=== PATIENT | female | born 1945 | race Caucasian/White ===

== ENCOUNTER 2019-05-27 12:05 | Observation (INO) | payer OTHER ==
[~2019-05-27] VITALS: Ht 160 cm; Wt 74.8 kg
[2019-05-27] VITALS (11 sets, daily range): BP systolic 125–150; BP diastolic 50–75
[~2019-05-27 12:05] MED LIST: ASPIRIN81 M2 PO; BRILINTA90 MG PO; FUROSEMIDE 20 M20 MG PO; GLIPIZIDE 10 MG10 MG PO; GLUCOPHAGE1000 MG; IRON325 PO; LIPITOR40 MG PO; LOSARTAN-HCTZ1 EAC3 PO; NITROGLYCERIN0.4 MG SUBLING; OMEPRAZOLE 20 M20 M1 PO; PAROXETINE HCL40 MG PO; SPIRONOLACTONE25 M1 PO; STIOLTO RESPIMAT4 GM INH
[2019-05-27 12:54] LABS: HEMATOCRIT 30.1 % (37.0-47.0); HEMOGLOBIN 10.3 gm/dL (12.0-15.0); MCV 85.1 fL (80.0-100.0); MPV 6.9 fl. (7.2-11.1); RBC 3.54 mil/uL (4.20-5.00); RDW-CV 14.5 % (10.5-14.5); WBC 9.4 thou/uL (4.0-11.0)
[2019-05-27] MEDS ORDERED: ELIQUIS5 MG PO (12:58)
[2019-05-27] MEDS ORDERED: LANTUS100 UNIT/M SUBQ (12:59)
[2019-05-27] MEDS ORDERED: WELLBUTRIN SR150 MG PO (13:01)
[2019-05-27 13:03] LABS: ANION GAP 7 mmol/L (7-16); BUN 21 mg/dL (7-18); CALCIUM 8.2 mg/dL (8.5-10.1); CHLORIDE 100 mmol/L (98-107); CO2 28 mmol/L (21-32); CREATININE 1.2 mg/dL (0.6-1.3); GLUCOSE 296 mg/dL (70-99); POTASSIUM 4.2 mmol/L (3.5-5.1); SODIUM 135 mmol/L (136-145)
[2019-05-27 13:07] LABS: ALBUMIN 3.2 g/dL (3.4-5.0); ALKALINE PHOSPHATASE 149 U/L (46-116); CHOLESTEROL 202 mg/dL (<200); HDL CHOLESTEROL 33 mg/dL (>40); LDL CHOLESTEROL 136 mg/dL (<100); SGOT 10 U/L (15-37); SGPT 16 U/L (30-65); TC:HDL 6.1 Ratio (Not establshd); TOTAL BILIRUBIN 0.5 mg/dL (<0.1-1.0); TOTAL PROTEIN 6.8 g/dL (6.4-8.2); TRIGLYCERIDE 168 mg/dL (<150); VLDL 34 mg/dL (<40)
[2019-05-27 13:08] LABS: SERUM ASSESSMENT Clear
[2019-05-27 13:15] LABS: APTT 22.2 Seconds (25.0-31.3); PROTIME 10.2 Seconds (9.20-11.50)
--- NOTE | 2019-05-27 14:08 | H ---
[place] [address] HISTORY AND PHYSICAL Name: RALEIGH IGNACIO Room: [facility]#: [id number] Admission: 05/27/19 Attend Phys: Fran Dodd MD, F Discharge: Date of : 43 Report #: [id number] THIS REPORT FOR: //name// CC: Dee Dodd DATE OF SERVICE: 05/27/2019 HISTORY OF PRESENT ILLNESS: The patient is a 74-year-old white female, who I was asked to see in the hospital today prior to undergoing a cardiac catheterization. The patient initially presented back in 2015 with chest pain. I placed a single coronary artery stent in the circumflex artery in 04/2016. She has done well since that time. However, recently she complained of heaviness in her chest. It radiates into her left arm. It can make her short of breath. It lasts several minutes, resolved. It is not related to exertion or meals. She has had no cough. She does get short of breath on exertion. She has had no palpitations or syncope. She saw my nurse practitioner in the Cardiology Clinic in January, who recommended a nuclear stress test. This showed evidence of anterior ischemia. She is placed on Imdur, but continued to have the chest pain. I recommended she undergo repeat cardiac catheterization. PAST MEDICAL HISTORY: Otherwise significant for hernia repair, sleep apnea, hypertension, hyperlipidemia and diabetes. MEDICATIONS: Include aspirin, Lipitor, bupropion, Prozac, glipizide, Lantus, metformin, omeprazole, Aldactone, aspirin, and Imdur. ALLERGIES: She has an allergy to SULFA DRUGS. FAMILY HISTORY: She has a son who had coronary artery bypass surgery. SOCIAL HISTORY: She is . She and her live in [place], [place]. Nonsmoker. No alcohol use. REVIEW OF SYSTEMS: She has had no history of stroke, asthma. She does have sleep apnea, uses CPAP. No history of liver disease, kidney disease or cancer. She had back surgery last winter. In September, she was done in [place] when she developed swelling of her left leg and was diagnosed with DVT and placed on Eliquis. She has had no bleeding on Eliquis. She held the Eliquis starting 3 days ago. PHYSICAL EXAMINATION: GENERAL: Revealed an elderly female. VITAL SIGNS: Blood pressure was 140/70, pulse is 80. HEENT: Mucous membranes are moist, [place] [address] HISTORY AND PHYSICAL Name: RALEIGH IGNACIO Room: [facility]#: [id number] Admission: 05/27/19 Attend Phys: Fran Dodd MD, F Discharge: Date of : 43 Report #: [id number] CHEST: Clear to auscultation. CARDIOVASCULAR: Regular rate and rhythm. There was a grade 2 systolic ejection murmur along the sternal border. ABDOMEN: Obese. EXTREMITIES: Had no pitting edema. SKIN: Cool and dry. NEUROLOGIC: Nonfocal. LABORATORY DATA: Lab work in December included BUN 19, creatinine 1. Lipid profile in November, cholesterol 204, triglyceride 185, HDL 31, and LDL 136. Hemoglobin 13.4. TSH 4.0. IMPRESSION AND RECOMMENDATIONS: 1. Angina. Previous stent to the circumflex. Abnormal nuclear stress test. Recommend repeat cardiac catheterization. 2. Hypertension. The patient is currently taking an ARB and diuretic. 3. Hyperlipidemia. The patient is on a statin drug. If LDL remains greater than 70, I would consider adding Zetia. 4. Diabetes. 5. Deep venous thrombosis in September. Eliquis on hold. 6. Obesity. 7. Previous back surgery. 8. Sleep apnea. The patient uses CPAP. <ELECTRONICALLY SIGNED> By: Fran Dodd MD, FACC 05/27/19 1408 1305 1320Dacarolina Dodd MD, FACC /nt
--- NOTE | 2019-05-27 15:53 | EKG ---
[place] [address] ELECTROCARDIOGRAM REPORT Name: RALEIGH IGNACIO Room: [facility]#: [id number] Admission: 05/27/19 Attend Phys: Fran Dodd MD, F Discharge: Date of : 43 Report #: [id number] THIS REPORT FOR: //name// [facility] Test Date: 2019-05-27 Test Time: 13:01:28 Pat Name: RALEIGH IGNACIO Department: Room: Gender: F Cradle Placer: RT : 1945 Requested By: Fran Dodd Order Number: [id number] Reading MD: Fran Dodd Measurements Intervals [place] Rate: 70 P: 20 [place]: 167 QRS: 16 QRSD: 89 T: 38 QT: 387 QTc: 418 Interpretive Statements Sinus rhythm Compared to ECG 05/19/2016 08:33:46 No significant changes Electronically Signed On 05-27-2019 15:52:50 CDT by Fran Dodd [email or web address] <ELECTRONICALLY SIGNED> By: Fran Dodd MD, [facility] 05/27/19 1552 1301 1301 Fran Dodd MD, FACC /EPI
--- NOTE | 2019-05-27 16:29 | CARD ---
[address] [address] CARDIAC CATH REPORT Name: [facility]ALEIGH [facility]CIO [id number] Admission: 05/27/19 Attend Phys: Fran Dodd MD, F Discharge: Date of : 43 Report #: [id number] THIS REPORT FOR: //name// APPROVED REPORT Study performed: 05/27/2019 13:46:30 Patient Details Patient Status: Out-Patient Room #: The patient is a 74 year-old female Event Personnel Fran Dodd Global Climate Change Researcher, Charles Poon UNIT ASSISTANT Monitor, Cesar Rob UNIT ASSISTANT Scrub, Elke East RTR Scrub, Alice Mclain RN Soaking Tank Worker, Itzel Martin RN Soaking Tank Worker, Harika Orozco RTR Monitor, Charles Poon UNIT ASSISTANT Scrub Procedures Performed Art Access - R radial artery, Left Heart Cath w/or w/o Coronaries , C ROXANA Place w/wo Plasty Single PDA Indication Positive stress test, Chest pain Risk Factors Coronary Artery Disease, Diabetes Previous Procedures/Diagnoses Previous PCI Admission/Lab Medications/Medications given during procedure Glycoprotein IllbIlla Inhibitors, Heparin Unfract., Midazolam (Versed) IV 2 mg, Fentanyl IV 25 mcg, Lidocaine Subcut 2 ml, Nitroglycerin IA 400 mcg total, Verapamil IA 5 mg total, Heparin IV 7000 units total, Aggrastat Unknown 7.5 ml, Plavix PO 600 mg Procedure Narrative The patient was brought electively to the Cardiac Catheterization Laboratory and was prepped and draped in a sterile manner. The right wrist was infiltrated with 1% Lidocaine subcutaneous anesthesia. A 6F Slender Glidesheath sheath was inserted into the right radial artery. Coronary angiography was performed using coronary diagnostic catheters. The right coronary system [place] [address] CARDIAC CATH REPORT Name: HUMA IGNACIOKeshia VELA Room: [facility]#: [id number] Admission: 05/27/19 Attend Phys: Fran Dodd MD, F Discharge: Date of : 43 Report #: [id number] a 6F JR4 catheter. The left coronary system was accessed and visualized with a 6F JL4 catheter. Left ventricular/Aortic Valve gradient assessed via catheter pullback. Closure device was deployed with a 6 Fr vascband. The patient tolerated the procedure well and there were no complications associated with the procedure. There was no hematoma. Intraoperative Conscious Sedation Sedation start time: 14:19 Case end Time: 15:12 Fentanyl 25 mcg Versed 2 mg Fluoro Time: 8.6 minutes Dose: DAP 12260 cGycm2 1133 mGy Contrast Type and Amount: Omnipaque 150 ml Coronary Angiography The patient's coronary anatomy is right dominant. Diagnostic Cath Left Main 0% stenosis LAD mid lad had 2 sequential 50% and 60% stenosis Circumflex mid vessel stent had a 30% restenosis R PDA sequential 70% and 80% stenosis RPLV 80% distal stenosis Left Ventriculography Left Ventriculography was not performed. Hemodynamics The aortic pressure is 121/57 mmHg with a mean of 82 mmHg. The left ventricular pressure is 118/8 mmHg with a mean of mmHg. The left ventricular end diastolic pressure is 10 mmHg. There was no gradient across the aortic valve upon pullback. Pullback from the left ventricle to the aorta revealed no gradient across the aortic valve. PCI Technique Lesion Anticoagulation was achieved with Heparin. bolus of iv aggrastat given Percutaneous coronary intervention was performed on the right posterior descending artery. The lesion stenosis prior to intervention was 80% with HERI 3 flow. A 6FR JCR 4 100CM Guide Catheter was used to engage the RCA ostium. A BMW 190cm Interventional Guidewire was used to cross the [place] [address] CARDIAC CATH REPORT Name: RALEIGH IGNACIO Room: [facility]#: [id number] Admission: 05/27/19 Attend Phys: Fran Dodd MD, F Discharge: Date of : 43 Report #: [id number] A Balloon catheter Trek RX 2.5 X 12 was inserted and inflated up to 6atm for 8seconds. Repeat angiography revealed the following post-dilatation results: 40% stenosis. Additional Inflation: 10atm for 17seconds. Additional Inflation: 14atm for 18seconds. STENT DEPLOYMENT A drug-eluting stent 2.75 X 22 Biotronick Orsiro was inserted and inflated up to 12atm for 8seconds. Repeat angiography revealed the following post-stent deployment results: 0% stenosis. Additional Inflation: 15atm for 9seconds. Final angiography reveals 0 % stenosis with HERI 3 flow. Conclusion 1. No restenosis of stent in the circumflex artery. 2. 80% stenosis in the distal RCA 3. successful placement of a drug eluting stent in the distal rca Recommendations Cardiac Rehabilitation Referral Aggressive Medical Therapy Medications Administered Clopidogrel <ELECTRONICALLY SIGNED> By: Fran Dodd MD, FACC 05/27/19 1629 28 1629Fran Dodd MD, FACC /INF
[2019-05-28] VITALS (7 sets, daily range): BP systolic 124–154; BP diastolic 63–69
[2019-05-28 04:34] LABS: HEMATOCRIT 28.7 % (37.0-47.0); HEMOGLOBIN 9.7 gm/dL (12.0-15.0); MCH 28.6 pg (26.0-34.0); MCHC 33.6 g/dL (28.0-37.0); MCV 84.9 fL (80.0-100.0); MPV 6.9 fl. (7.2-11.1); RBC 3.38 mil/uL (4.20-5.00); RDW-CV 14.2 % (10.5-14.5); WBC 7.3 thou/uL (4.0-11.0)
[2019-05-28 04:50] LABS: CALCIUM 7.9 mg/dL (8.5-10.1); POTASSIUM 3.8 mmol/L (3.5-5.1); TROPONIN-I LEVEL 0.08 ng/mL (<0.06)
[2019-05-28] MEDS ORDERED: PLAVIX 75 MG TA75 M1 PO (13:00)
[2019-05-28] MEDS ORDERED: IMDUR 30 MG TAB30 M1 PO (13:07)
[2019-05-28] MEDS ORDERED: METFORMIN HCL500 MG (13:07)
--- NOTE | 2019-05-28 16:45 | SHORT ---
[address] [address] SHORT STAY SUMMARY Name: RALEIGH IGNACIO Room: [address] Talon Gregorio#: [id number] Admission: 05/27/19 Attend Phys: Fran Dodd MD, F Discharge: 05/28/19 Date of : 43 Report #: [id number] THIS REPORT FOR: //name// CC: Dee Kumar in [place], [place] DATE OF SERVICE: 05/28/2019 CARDIOLOGY DISCHARGE SUMMARY DISCHARGE DIAGNOSES: 1. Angina pectoris. 2. Diabetes. 3. Hypertension. 4. Hyperlipidemia. 5. History of deep venous thrombosis. CONSULTANTS: None. PROCEDURES: Left heart catheterization and placement of a single drug-eluting stent in the distal right coronary artery via the radial approach. HISTORY OF PRESENT ILLNESS: The patient is a 74-year-old white female who was brought to the outpatient department to undergo repeat cardiac catheterization. The patient had a previous heart catheterization in 2015. At that time, she had a stent placed in her circumflex artery. Recently, she complained of intermittent discomfort in her chest. It radiates into her left arm. It can make her short of breath. She denied any palpitation or syncope. She actually saw my nurse practitioner in September and underwent a nuclear stress test recently that showed evidence of ischemia. I recommended that she undergo repeat cardiac catheterization. PAST MEDICAL HISTORY: Otherwise significant for sleep apnea, treated with BiPAP. She has had a hernia repair. She has a history of hypertension, diabetes and hyperlipidemia. She had [facility] a [facility]. In September of this year, she had swelling of her leg and was diagnosed with a DVT. She was placed on Eliquis. OTHER MEDICATIONS: Include Lipitor, Prozac, glipizide, insulin, Hyzaar, metformin, omeprazole, spironolactone and aspirin. She recently was started on Imdur. PHYSICAL EXAMINATION: GENERAL: Revealed an elderly female. VITAL SIGNS: Blood pressure was 130/80 and [place] [address] SHORT STAY SUMMARY Name: RALEIGH IGNACIO Room: [address]#: [id number] Admission: 05/27/19 Attend Phys: Fran Dodd MD, F Discharge: 05/28/19 Date of : 43 Report #: [id number] CHEST: Clear to auscultation. CARDIOVASCULAR: Regular rate and rhythm. ABDOMEN: Soft. EXTREMITIES: Had no edema. SKIN: Warm, dry. NEUROLOGIC: Nonfocal. LABORATORY WORK: Sodium 137, creatinine 1.0, SGOT 10 and SGPT 16. Cholesterol 202, triglyceride 168, HDL 33 and LDL 136. White blood cell count 9.4, hemoglobin 10.3 and MCV of 84. HOSPITAL COURSE: The patient was brought to the outpatient department. I performed a left heart catheterization from the right radial artery. The patient had been off her Eliquis for 4 days. RESULTS: She was found to have a 60% stenosis in the mid LAD. The stent in the circumflex had only 30% restenosis. There was a sequential 80% and 70% stenosis of the posterior descending branch of the distal right coronary artery. A distal posterolateral branch also had an 80% stenosis. She was given heparin and a bolus of Aggrastat. I then placed a single drug-eluting stent in the posterior descending artery. She was loaded with Plavix 600 mg. No ventriculogram was performed, although the EDP was only 8. Ejection fraction on nuclear stress test was normal. The following day, she had no further chest pain, arrhythmias or heart failure. There was no bleeding from her wrist. She was discharged on her home medications, although I did recommend she wait at least 24 hours prior to starting her Eliquis 5 mg twice a day. I did recommend that she discuss with Dr. Kumar whether she needed continued Eliquis. DVT had been 6 months ago. She was already on Lipitor 80 mg a day and I would suggest adding Zetia 10 mg a day because of her elevated LDL. She was to continue Wellbutrin, Prozac, glipizide, her insulin and Hyzaar for hypertension. She is not to resume the metformin for 48 hours, omeprazole, spironolactone 25 mg a day, aspirin 81 mg a day. She can now stop her isosorbide and she was started on Plavix 75 mg a day. I recommend that she start an exercise program, maintain tight control of her diabetes. I plan on seeing her back in Cardiology Clinic in 6 weeks. If she remains stable, I will consider discontinuing the aspirin if she continues to stay on the Eliquis and Plavix. She is felt to have a good prognosis from a cardiac standpoint. <ELECTRONICALLY SIGNED> By: Fran Dodd MD, FACC 05/28/19 1645 1244 1324Dgabriella Dodd MD, FACC /nt
--- NOTE | 2019-05-28 17:20 | EKG ---
[place] [address] ELECTROCARDIOGRAM REPORT Name: RALEIGH IGNACIO Room: [address] M[address]R.#: [id number] Admission: 05/27/19 Attend Phys: Fran Dodd MD, F Discharge: 05/28/19 Date of : 43 Report #: [id number] THIS REPORT FOR: //name// [facility] Test Date: 2019-05-28 Test Time: 08:46:37 Pat Name: RALEIGH IGNACIO Department: Room: [address] Gender: F Storage Center Manager: : 1945 Requested By: Fran Dodd Order Number: [id number] Mahesh MD: Aleks Muller Measurements Intervals [place] Rate: 72 P: 31 SD: 166 QRS: 15 QRSD: 94 T: 49 QT: 386 QTc: 423 Interpretive Statements Sinus rhythm Compared to ECG 05/27/2019 13:01:28 No significant changes Electronically Signed On 05-28-2019 17:20:24 CDT by Aleks Muller [email or web address] <ELECTRONICALLY SIGNED> By: Aleks Muller MD, [facility] 05/28/19 1720 5 Aleks Muller MD, [facility] /EPI
== END 2019-05-28 13:45 | disposition home or self-care (01) ==
LOC: M.CL 12:05 → M.2W 15:30
PROVIDERS: ADMIT Internal Medicine Cardiovascular Disease
DX: I25.110 Atherosclerotic heart disease of native coronary artery with unstable angina pectoris (principal); I10 Essential (primary) hypertension; E11.9 Type 2 diabetes mellitus without complications; D64.9 Anemia, unspecified; G47.30 Sleep apnea, unspecified; Z88.2 Allergy status to sulfonamides; Z79.82 Long term (current) use of aspirin; Z79.84 Long term (current) use of oral hypoglycemic drugs; Z79.899 Other long term (current) drug therapy